=== PATIENT | female | born 1980 | race Caucasian/White ===

== ENCOUNTER 2018-06-16 22:38 | Emergency (ER) | payer OTHER ==
[~2018-06-16] VITALS: Ht 167.6 cm; Wt 71.0 kg
[~2018-06-16 22:38] MED LIST: CYCL-394 PO; DICL75TA PO; DULO-31 PO; NORCO10T PO
[2018-06-16 22:47] VITALS: BP 120/75
== END 2018-06-17 03:29 | disposition left against medical advice (07) ==
LOC: ER 22:39
DX: Z76.0 Encounter for issue of repeat prescription (principal); Z53.21 Procedure and treatment not carried out due to patient leaving prior to being seen by health care provider

== ENCOUNTER 2019-01-24 18:00 | Emergency (ER) | payer BC, OTHER ==
[~2019-01-24] VITALS: Ht 167.6 cm; Wt 69.1 kg
[~2019-01-24 18:00] MED LIST changes: +DOXY100C43 PO
[2019-01-24] MEDS ORDERED: ondansetron 4mg rapidly disintigrating tab PO ONE (18:25)
[2019-01-24] MEDS ORDERED: ONDA4TAB6 PO (18:54)
[2019-01-24 19:27] LABS: CLARITY,URINE CLEAR (Clear); COLOR,URINE YELLOW (Yellow); GLUCOSE, URINE NEGATIVE (Neg); KETONES,URINE NEGATIVE (Neg); LEUKOCYTE ESTERASE ,URINE NEGATIVE (Neg); NITRITES, URINE NEGATIVE (Neg); OCCULT BLOOD,URINE NEGATIVE (Neg); PROTEIN,URINE NEGATIVE (Neg); UROBILINOGEN,URINE 0.2 E.U/dL (0.2-1.0)
[2019-01-24 19:33] LABS: UA COLLECTION TYPE CLN CATCH MIDSTREAM
[2019-01-24 20:05] VITALS: BP 118/81
== END 2019-01-24 20:14 | disposition home or self-care (01) ==
LOC: ER 18:01
DX: R10.31 Right lower quadrant pain (principal); R11.2 Nausea with vomiting, unspecified; G89.29 Other chronic pain; Z98.890 Other specified postprocedural states; Z88.0 Allergy status to penicillin; Z88.2 Allergy status to sulfonamides; Z79.899 Other long term (current) drug therapy
CPT/HCPCS: 76700; 76856; 81003; 99284